=== PATIENT | male | born 1950 | race Caucasian/White ===

== ENCOUNTER 2016-07-05 04:59 | Day surgery (SDC) | payer BC ==
[~2016-07-05 04:59] MED LIST: ASAB PO; COZAAR100 MG PO; MULTI-VIT HP PO; OTC IRON PO; OTC STOOL SOFTENER PO; PRAVACHOL40 MG PO; PRILOSEC40 MG PO
== END 2016-07-05 07:35 | disposition home or self-care (01) ==
LOC: SDC 04:59
PROVIDERS: Orthopaedic Surgery
PROC: 3E0R33Z Introduction of Anti-inflammatory into Spinal Canal, Percutaneous Approach (ICD-10-PCS; principal; 2016-07-05 07:30)
DX: M54.16 Radiculopathy, lumbar region (principal); I10 Essential (primary) hypertension; E78.00 Pure hypercholesterolemia, unspecified; D64.9 Anemia, unspecified; K21.9 Gastro-esophageal reflux disease without esophagitis; Z87.891 Personal history of nicotine dependence; Z88.0 Allergy status to penicillin; Z88.8 Allergy status to other drugs, medicaments and biological substances; Z98.890 Other specified postprocedural states
CPT/HCPCS: J1040; Q9967

== ENCOUNTER 2016-07-18 04:53 | Day surgery (SDC) | payer BC | END 2016-07-18 13:26 | disposition home or self-care (01) | LOC: SDC 04:53 | PROVIDERS: Orthopaedic Surgery | PROC: 3E0R3BZ Introduction of Anesthetic Agent into Spinal Canal, Percutaneous Approach (ICD-10-PCS; 2016-07-18) | PROC: 3E0R33Z Introduction of Anti-inflammatory into Spinal Canal, Percutaneous Approach (ICD-10-PCS; principal; 2016-07-18 08:00) | DX: M54.16 Radiculopathy, lumbar region (principal) | CPT/HCPCS: J1040; Q9967 ==